=== PATIENT | male | born 1970 | race Caucasian/White ===

== ENCOUNTER 2024-04-04 02:10 | Emergency (ER) | payer SELFPAY ==
[2024-04-04] MEDS ORDERED: Sodium Chloride 0.9% 10 ML Syringe FLUSH PRN (02:14)
[2024-04-04] MEDS ORDERED: Sodium Chloride 0.9% 500 ML IV SCH (02:15)
[2024-04-04 02:35] LABS: BASOPHILS ABSOLUTE AUTO 0.04 K/uL (0.00-0.20); BASOPHILS PERCENT AUTO 0.4 % (0.0-2.0); EOSINOPHILS ABSOLUTE AUTO 0.15 K/uL (0.00-0.50); EOSINOPHILS PERCENT AUTO 1.3 % (0.0-5.0); HEMATOCRIT 46.1 % (39.0-49.0); HEMOGLOBIN 16.1 g/dL (13.1-16.8); LYMPHOCYTES ABSOLUTE AUTO 5.02 K/uL (0.50-3.50); LYMPHOCYTES PERCENT AUTO 45.1 % (10.0-50.0); MEAN CORPUSCULAR HEMOGLOBIN 29.8 pg (28.2-33.3); MEAN CORPUSCULAR HGB CONC 34.9 g/dL (31.7-36.0); MEAN CORPUSCULAR VOLUME 85.2 fL (84.0-98.0); MONOCYTES ABSOLUTE AUTO 0.89 K/uL (0.00-1.00); NEUTROPHILS ABSOLUTE AUTO 5.02 K/uL (1.40-7.00); NEUTROPHILS PERCENT AUTO 45.2 % (45.0-80.0); PLATELET COUNT,PLT 273 K/uL (150-350); RED BLOOD CELL COUNT 5.41 M/uL (4.33-5.41); RED CELL DISTRIBUTION WIDTH 13.1 % (11.2-14.1); WHITE BLOOD CELL COUNT,WBC 11.1 K/uL (4.0-10.2)
[2024-04-04] MEDS: Sodium Chloride 0.9% 1,000 ML IV ONE (02:39)
[2024-04-04 02:42] LABS: ALANINE AMINOTRANSFERASE,ALT 40 U/L (12-78); ALBUMIN 3.8 g/dL (3.4-5.0); ALKALINE PHOSPHATASE 99 IU/L (46-116); ANION GAP 12.7 meq/L (7-15); ASPARTATE AMNIOTRANSFERASE,AST 20 U/L (15-37); BILIRUBIN TOTAL 0.4 mg/dL (0.2-1.0); BLOOD UREA NITROGEN,BUN 16 mg/dL (7-18); CALCIUM 9.3 mg/dL (8.5-10.1); CARBON DIOXIDE,CO2 25.3 mmol/L (21.0-32.0); CHLORIDE,CL 103 mmol/L (98-107); CREATININE 1.26 mg/dL (0.51-1.17); GLUCOSE RANDOM 112 mg/dL (70-99); POTASSIUM,K 3.9 mmol/L (3.5-5.1); PROTEIN TOTAL,TP 7.2 g/dL (6.4-8.2); SODIUM,NA 141 mmol/L (136-145)
[2024-04-04 02:43] LABS: ESTIMATED GFR 67 mL/min (>=60)
[2024-04-04 03:02] LABS: PROTHROMBIN TIME 10.2 SEC (9.0-11.1); PTT,PARTIAL THROMBOPLSTIN TIME 23.2 SEC (23.6-29.8)
[2024-04-04] MEDS ORDERED: levETIRAcetam 500 MG/5 ML Solution ML 473 ml Bottle PO ONE ×2 (04:00→04:30)
[2024-04-04] MEDS: levETIRAcetam 500 MG Tab PO ONE (04:44)
== END 2024-04-04 05:00 | disposition home or self-care (01) ==
LOC: LL.ED 02:10
DX: R56.9 Unspecified convulsions (principal)
CPT/HCPCS: 36415; 70450; 80053; 83605; 83735; 84484; 85025; 85610; 85730; 93005; 96360; 96361; 99285-25; A9270-GY; J7030